=== PATIENT | female | born 1995 | race Hispanic/Latino ===

== ENCOUNTER 2019-04-16 07:26 | Emergency (ER) | payer OTHER ==
[~2019-04-16] VITALS: Ht 157.5 cm; Wt 105.0 kg
[~2019-04-16 07:26] MED LIST: BACTRIM DS1 TAB PO; CEPHALEXIN500 M1 PO
[2019-04-16 08:45] VITALS: BP 1439/87
== END 2019-04-16 08:48 | disposition home or self-care (01) ==
LOC: ED 07:26
DX: K08.89 Other specified disorders of teeth and supporting structures (principal); F17.210 Nicotine dependence, cigarettes, uncomplicated

== ENCOUNTER 2021-09-06 14:00 | Emergency (ER) | payer OTHER ==
[~2021-09-06] VITALS: Ht 157.5 cm; Wt 83.2 kg
[2021-09-06 14:10] VITALS: BP 121/67
[2021-09-06 14:30] VITALS: BP 116/74
[2021-09-06 15:00] VITALS: BP 109/67
[2021-09-06] MEDS ORDERED: AMOX/K CLAV875 M1 PO (15:12)
[2021-09-06] MEDS ORDERED: ZPAK PO (15:12)
[2021-09-06 15:31] VITALS: BP 111/61
[2021-09-06 16:04] VITALS: BP 60/40
[2021-09-06 16:07] VITALS: BP 60/40
== END 2021-09-06 16:10 | disposition home or self-care (01) ==
LOC: ED 14:00
DX: J18.9 Pneumonia, unspecified organism (principal); F17.200 Nicotine dependence, unspecified, uncomplicated; Z20.822 Contact with and (suspected) exposure to COVID-19